=== PATIENT | male | born 1955 | race Caucasian/White ===

== ENCOUNTER 2017-08-27 03:34 | Emergency (ER) | payer BC ==
[2017-08-27 04:29] LABS: #Basophils 0.1 thou/uL (0.0-0.2); #Eosinphils 0.2 thou/uL (0.0-0.7); #Lymphocytes 1.4 thou/uL (1.20-3.40); #Monocytes 0.5 thou/uL (0.11-0.59); #Neutrophils 2.4 thou/uL (1.40-6.50); %Basophils 1.6 % (0.0-1.0); %Eosinophils 4.6 % (0.0-10.0); %Lymphocytes 30.3 % (21.0-51.0); %Monocytes 10.4 % (0.0-10.0); %Neutrophils 53.1 % (42.0-75.0); Hemoglobin 14.2 g/dL (14.0-18.0); Mean Corpuscular HGB CONC 35.2 g/dL (32.0-36.0); Mean Corpuscular Hemoglobin 34.8 pg (27.0-31.0); Mean Corpuscular Volume 98.7 fl (80.0-94.0); Mean Platelet Volume 7.9 fL (7.4-10.4); Platelet Count 182 thou/uL (130-400); RBC Distribution Width 12.4 % (11.5-14.5); Red Blood Cell (RBC) Count 4.08 mill/uL (4.70-6.10); White Blood Cell (WBC) Count 4.5 thou/uL (4.8-10.8)
[2017-08-27 04:35] LABS: ALT (SGPT) 46 U/L (8-55); AST (SGOT) 29 U/L (5-34); Albumin 4.4 g/dL (3.4-4.8); Alkaline Phosphatase 79 U/L (40-150); Anion Gap 14 mmol/L (10-20); BUN (Urea Nitrogen) 24 mg/dL (8.4-25.7); Bilirubin, Total 0.3 mg/dL (0.2-1.2); Calc. Creatinine Clearance 0 mL/min (70-130); Calcium 10.1 mg/dL (7.8-10.44); Carbon Dioxide 21 mmol/L (23-31); Chloride 108 mmol/L (98-107); Estimated GFR-MDRD 76; Globulin 2.8 g/dL (2.4-3.5); Glucose 109 mg/dL (80-115); Potassium 3.7 mmol/L (3.5-5.1); Protein, Total 7.2 g/dL (5.8-8.1); Sodium 139 mmol/L (136-145)
[2017-08-27 04:39] LABS: CKMB 2.4 ng/mL (0-6.6)
--- NOTE | 2017-08-27 08:09 | RAD ---
CHEST ONE VIEW: History: Palpitations. Comparison: None. FINDINGS: Lungs are clear. No pneumothorax or effusion. Cardiac silhouette and mediastinal contours are within normal limits. Moderate degenerative disease of the acromioclavicular joints. IMPRESSION: No acute intrathoracic abnormality. POS: [facility]
--- NOTE | 2017-09-12 20:53 | EKG ---
Test Reason : PALPITATIONS Blood Pressure : / mmHG Vent. Rate : 091 BPM Atrial Rate : 091 BPM P-R Int : 154 ms QRS Dur : 090 ms QT Int : 370 ms P-R-T Axes : 049 -02 015 degrees QTc Int : 455 ms Normal sinus rhythm Minimal voltage criteria for LVH, may be normal variant Nonspecific ST abnormality Abnormal ECG Confirmed by JUDE BYERS, DOLLY ([id number]), editor book ABDI GORE ([id number]) on 09/12/2017 8:52:54 PM Referred By: Confirmed By:DOLLY ROQUE MD
== END 2017-08-27 05:03 | disposition home or self-care (01) ==
LOC: ERS 03:34
DX: R00.2 Palpitations (principal); Z79.899 Other long term (current) drug therapy
CPT/HCPCS: 36415; 71010; 80053; 82553; 84484; 85025; 93005

== ENCOUNTER 2018-07-22 20:11 | Observation (INO) | payer BC ==
[~2018-07-22 20:11] MED LIST: ISOVUE-370 76%-LOCM 1 ML ONE
--- NOTE | 2018-07-22 20:28 | CT ---
NONCONTRAST HEAD CT 07/22/18 HISTORY: Recent ablation. Left sided numbness and weakness x30 minutes. FINDINGS: No parenchymal hemorrhage. No extra-axial hematoma. No midline shift. Basilar cisterns are patent. Br ain volume is age appropriate. Cortical tracy-white matter differentiation is preserved. Ventricles and sulci are patent and symmetric. Adequate aeration of the sinuses and mastoid air cells. Cavernous carotid atherosclerosis. Intact calvarium. IMPRESSION: No acute intracranial process. Results of the study discussed with Dr. Silva, 07/22/18 at 8:20 p.m. Code CR POS: [facility]
[2018-07-22 20:40] LABS: #Eosinphils 0.1 thou/uL (0.0-0.7); #Lymphocytes 1.6 thou/uL (1.20-3.40); #Monocytes 0.6 thou/uL (0.11-0.59); #Neutrophils 3.6 thou/uL (1.40-6.50); %Basophils 0.4 % (0.0-1.0); %Eosinophils 1.3 % (0.0-10.0); %Lymphocytes 27.7 % (21.0-51.0); %Monocytes 9.9 % (0.0-10.0); %Neutrophils 60.7 % (42.0-75.0); Hemoglobin 12.5 g/dL (14.0-18.0); Mean Corpuscular HGB CONC 33.1 g/dL (32.0-36.0); Mean Corpuscular Hemoglobin 33.1 pg (27.0-31.0); Mean Platelet Volume 8.1 fL (7.4-10.4); Platelet Count 166 thou/uL (130-400); RBC Distribution Width 13.4 % (11.5-14.5); Red Blood Cell (RBC) Count 3.78 mill/uL (4.70-6.10); White Blood Cell (WBC) Count 5.9 thou/uL (4.8-10.8)
[2018-07-22 20:46] LABS: INR-International Normal Ratio 1.1; PTT 31.3 SEC (22.9-36.1); Prothrombin Time 14.2 SEC (12.0-14.7)
[2018-07-22 20:55] LABS: ALT (SGPT) 53 U/L (8-55); AST (SGOT) 36 U/L (5-34); Albumin 4.4 g/dL (3.4-4.8); Alkaline Phosphatase 70 U/L (40-150); Anion Gap 14 mmol/L (10-20); BUN (Urea Nitrogen) 21 mg/dL (8.4-25.7); Bilirubin, Total 0.2 mg/dL (0.2-1.2); CK (CPK) 156 U/L (30-200); Calc. Creatinine Clearance 0 mL/min (70-130); Carbon Dioxide 21 mmol/L (23-31); Chloride 110 mmol/L (98-107); Estimated GFR-MDRD 57; Globulin 2.4 g/dL (2.4-3.5); Glucose 96 mg/dL (80-115); Potassium 3.7 mmol/L (3.5-5.1); Protein, Total 6.8 g/dL (5.8-8.1); Sodium 141 mmol/L (136-145)
[2018-07-22 21:02] LABS: CKMB 3.8 ng/mL (0-6.6)
[2018-07-22 21:04] LABS: Bilirubin Negative (Negative); Blood, Urine Negative (Negative); Clarity CLEAR (Clear); Glucose, Urine (Dipstick) Negative (Negative); Leukocyte Negative (Negative); Nitrite Negative (Negative); Protein, Urine (Dipstick) Negative (Neg-Trace); Specific Gravity, Urine 1.007 (1.002-1.036); Urobilinogen 0.2 mg/dL (0.2-1.0)
[2018-07-22 21:06] LABS: Troponin I 0.574 ng/mL (< 0.028)
--- NOTE | 2018-07-22 21:06 | RAD ---
ONE VIEW CHEST: 07/22/18 HISTORY: Chest pain. Left sided numbness x30 minutes. Recent cardiac ablation. COMPARISON: 08/27/17. FINDINGS: Portable upright chest demonstrates a normal cardiac silhouette. Pulmonary vessels and hilum are norm al. Costophrenic angles are clear. Lung volumes are diminished. Interstitial opacities in the lung ba ses likely represent atelectasis. No pneumothorax or osseous abnormalities. IMPRESSION: No acute cardiopulmonary process. POS: [facility]
--- NOTE | 2018-07-22 21:18 | CT ---
CT ANGIOGRAM OF THE HEAD CT ANGIOGRAM OF THE NECK 07/22/18 HISTORY: Level I stroke alert. Left sided numbness x30 minutes. Recent cardiac ablation. COMPARISON: None. TECHNIQUE: CT angiogram of the head and neck are performed in the axial plane. Three dimensional reformatted johanna ges are submitted for interpretation. FINDINGS: POSTCONTRAST HEAD CT: Chronic small vessel ischemic change of white matter is suspected. No evidence of loss of cortical gr ay-white matter differentiation. No hydrocephalus. No pathologic enhancement of the brain parenchyma. There is adequate aeration of the visualized sinuses and mastoid air cells. Bilateral ocular lenses are appropriately located. Both globes are intact. Retrobulbar fat is preserv ed. Symmetric attenuation of the optic nerves and ocular rectus muscles. Limited evaluation of the or al cavity due to dental amalgam artifact. Aerodigestive tract is patent. Symmetric attenuation of the parotid and submandibular glands. Unremarkable thyroid gland. Symmetric attenuation of the sternocle idomastoid muscles. No evidence of lymphadenopathy by size criteria. Upper mediastinum and lung apices are unremarkable. Cervical spine vertebral body height is maintained. No fracture or malalignment. No evidence of high grade central canal stenosis. Varying degrees of significant multilevel neural foraminal narrowing on the basis of degenerative change. Evaluation is limited by technique. CT ANGIOGRAM: The aortic arch is excluded from exam. RIGHT CAROTID: The visualized right carotid artery has appropriate enhancement and luminal diameter. There is minima l atherosclerosis in the carotid bifurcation and mild stenosis due to noncalcified plaque in the prox imal right internal carotid artery. No evidence of significant stenosis based upon NASCET criteria. LEFT CAROTID: The visualized left carotid artery has appropriate enhancement and luminal diameter. There is no sign ificant stenosis based upon NASCET criteria. The visualized cervical vertebral arteries are also patent and essentially codominant. The visualized subclavian arteries are also unremarkable. CT ANGIOGRAM OF THE HEAD: Distal cervical and intracranial internal carotid arteries are essentially symmetric. Minimal atheros clerosis involving both cavernous and paraclinoid segments. ANTERIOR CIRCULATION: There is symmetric enhancement and luminal diameter of the M1 segments and proximal MCA branches. Sli ghtly diminutive left A1 segment is felt to be due to congenital variant. Nevertheless, bilateral pro ximal A2 segments are patent. POSTERIOR CIRCULATION: Both vertebral arteries supply a normal appearing basilar artery. Both P1 segments have appropriate e nhancement and luminal diameter. Limited evaluation of both PICA artery origins. IMPRESSION: 1. No evidence of significant stenosis at the level of the [place]. 2. No significant stenosis of the cervical carotid artery based upon NASCET criteria. Results of the study discussed with Dr. Silva, 07/22/18 at 9:03 p.m. Code CR POS: [facility]
[2018-07-22] MEDS ORDERED: Ondansetron PF 4 MG/2 ML Vial ONE (22:01)
[2018-07-22] MEDS ORDERED: Metoclopramide HCl 10 MG/2 ML VIAL ONE (22:37)
[2018-07-22] MEDS ORDERED: diphenhydrAMINE 50 MG/ML VIAL ONE (22:37)
[2018-07-22] MEDS ORDERED: Sodium Chloride 0.45% 1,000 ML IV SCH (23:45)
[2018-07-22] MEDS ORDERED: Ondansetron PF 4 MG/2 ML Vial IVP PRN ×2 (23:54→23:58)
[2018-07-22] MEDS ORDERED: Ondansetron ODT 4 MG TAB PO PRN (23:54)
--- NOTE | 2018-07-22 23:54 | PDOC.FPRHP ---
- History of Present Illness Chief Complaint: left-sided numbness and perioral facial droop History of Present Illness: Patient is a 63YO gentleman with a PMH significant for atrial fibrillation and flutter s/p ablation x2 and cardioversion x 1 and CAD who underwent cardiac ablation yesterday who presented to the ED after he began to feel left-sided numbness in his perioral region, his left hand and his left foot around 20:30 today. He reports that he was sitting down at dinner and suddenly began to feel some numbness and tingling in his left hand which was followed by L-sided perioral and foot numbness. He attempted to get up from the table and lay down in bed but his then noticed that the left side of his mouth was "flat" so they decided to come to the ED for further evaluation. The patient reports an associated 5/10 bitemporal headache and nausea but denies any weakness, vision changes, chest pain, palpitations, lightheadedness, or syncope. He has never had a stroke before but has had 3 cardiac stents placed. ED Course: The patient was given 324mg of PO ASA as well as IV reglan and benadryl. - Allergies/Adverse Reactions Allergies Allergy/AdvReac Type Severity Reaction Status Date / Time No Known Drug Allergies Allergy Verified 07/23/18 01:13 - Home Medications Medication Instructions Recorded Confirmed Type Aspirin [Aspirin Chewable Tablet] 81 mg PO DAILY 07/23/18 07/23/18 History Dabigatran [Pradaxa] 150 mg PO BID 07/23/18 07/23/18 History Omeprazole 40 mg PO HS 07/23/18 07/23/18 History Propafenone HCl [Rythmol SR] 425 mg PO BID 07/23/18 07/23/18 History Rosuvastatin [Crestor] 40 mg PO HS 07/23/18 07/23/18 History Temazepam 30 mg PO HS 07/23/18 07/23/18 History clonazePAM [Clonazepam] 0.5 mg PO HS 07/23/18 07/23/18 History - History PMHx: CAD s/p stent placement x3, DEYVI, GERD, HLD, atrial fibrillation/flutter s/ p ablation x2 and cardioversion x1 PSHx: CABG w/ 3 stents placed, cardiac ablation x2 (07/21/18 & 05/05/18), cardioversion x1 FHx: [place]- brother CVA - grandfather Social: Lives at home with his . Denies any tobacco or illicit drug use. Endorses drinking a glass of red wine every evening. - Review of Systems General: denies: fever/chills, fatigue Eyes: denies: vision changes ENT: reports: other (no sore throat). denies: nasal congestion Respiratory: denies: cough, congestion, shortness of breath Cardiovascular: denies: chest pain, palpitation Gastrointestinal: reports: nausea. denies: vomiting, diarrhea, constipation, abdominal pain Genitourinary: denies: dysuria (no hematuria) Skin: denies: rashes, itching Musculoskeletal: denies: pain, arthritis/arthralgias Neurological: reports: numbness, other (+ headache). denies: syncope, weakness Psychological: denies: anxiety, depression - Vital signs BP: 138/83 HR: 79 RR: 16 Tmax: 98.6F Pox: 95% on RA Wt: 116.375 kg - Physical Exam Constitutional: NAD, awake, alert and oriented, well developed HEENT: normocephalic and atraumatic, PERRLA, EOMI, grossly normal vision, grossly normal hearing, MMM, oropharynx clear Neck: supple, FROM, trachea midline Heart: RRR, normal S1/S2, pulses present, no edema Lungs: CTAB, no respiratory distress, good air movement, no rales/rhonchi, no wheezing Abdomen: soft, non-tender, bowel sounds present Musculoskeletal: normal structure, ROM grossly normal Neurological: no focal deficit -Neurological: Decreased sensation in V1 & V3 on the left. Otherwise, all other electrician powerhouse intact. No dysarhtria or facial droop noted. Also decreased pinprick sensation in left foot. Proprioception intact. 5/5 strength throughout. Skin: no rash/lesions, good turgor, no jaundice Heme/Lymphatic: no unusual bruising or bleeding Psychiatric: normal mood and affect, good judgment and insight, intact recent and remote memory FMR H&P: Results - Labs Result Diagrams: 07/22/18 20:27 07/22/18 20:27 Lab results: WBC 5.9 thou/uL (4.8-10.8) 07/22/18 20:27 Hgb 12.5 g/dL (14.0-18.0) L 07/22/18 20: Hct 37.8 % (42.0-52.0) L 07/22/18 20: MCV 100.0 fL (78.0-98.0) H 07/22/18 20: Plt Count 166 thou/uL (130-400) 07/22/18 20: Neutrophils % 60.7 % (42.0-75.0) 07/22/18 20: Sodium 141 mmol/L (136-145) 07/22/18 20: Potassium 3.7 mmol/L (3.5-5.1) 07/22/18 20: Chloride 110 mmol/L (98-107) H 07/22/18: Carbon Dioxide 21 mmol/L (23-31) L 07/22/18 20: BUN 21 mg/dL (8.4-25.7) 07/22/18 20: Creatinine 1.28 mg/dL (0.6-1.3) 07/22/18 20: Glucose 96 mg/dL (80-115) 07/22/18 20: Calcium 9.0 mg/dL (7.8-10.44) 07/22/18: Total Bilirubin 0.2 mg/dL (0.2-1.2) 07/22/18 20: AST 36 U/L (5-34) H 07/22/18 20: ALT 53 U/L (8-55) 07/22/18: Alkaline Phosphatase 70 U/L (40-150) 07/22/18 20: Creatine Kinase 156 U/L (30-200) 07/22/18 20: CK-MB (CK-2) 3.8 ng/mL (0-6.6) 07/22/18 20: Serum Total Protein 6.8 g/dL (5.8-8.1) 07/22/18 20: Albumin 4.4 g/dL (3.4-4.8) 07/22/18 20: Urine Ketones Negative mg/dL (Negative) 07/22/18 20: Urine Blood Negative (Negative) 07/22/18 20: Urine Nitrite Negative (Negative) 07/22/18 20:51 Ur Leukocyte Esterase Negative (Negative) 07/22/18 20:51 - Radiology Interpretation CT scan - head Status: report reviewed by me (No acute IC process.) Other Status: report reviewed by me Additional comment: CTA head and neck - no significant stenosis Chest x-ray Status: report reviewed by me (No acute cardiopulmonary process) FMR H&P: A/P - Problem List (1) TIA (transient ischemic attack) Current Visit: Yes Status: Suspected Code(s): G45.9 - TRANSIENT CEREBRAL ISCHEMIC ATTACK, UNSPECIFIED (2) GERD (gastroesophageal reflux disease) Current Visit: Yes Status: Chronic Code(s): K21.9 - GASTRO-ESOPHAGEAL REFLUX DISEASE WITHOUT ESOPHAGITIS (3) DEYVI (obstructive sleep apnea) Current Visit: Yes Status: Chronic Code(s): G47.33 - OBSTRUCTIVE SLEEP APNEA (ADULT) (PEDIATRIC) (4) HLD (hyperlipidemia) Current Visit: Yes Status: Chronic Code(s): E78.5 - HYPERLIPIDEMIA, UNSPECIFIED (5) History of atrial fibrillation Current Visit: Yes Status: Chronic Code(s): Z86.79 - PERSONAL HISTORY OF OTHER DISEASES OF THE CIRCULATORY SYSTEM (6) Status post ablation of atrial flutter Current Visit: Yes Status: Acute Code(s): Z98.890 - OTHER SPECIFIED POSTPROCEDURAL STATES; Z86.79 - PERSONAL HISTORY OF OTHER DISEASES OF THE CIRCULATORY SYSTEM - Plan 63 YO gentleman with a PMH significant for HLD and atrial fibrillation/flutter s /p ablation yesterday who presented to the ED with a chief complaint of sudden onset L-sided numbness and facial droop that began around 20:30 this evening. Suspected TIA: - Patient has some residual numbness in L face, hand and foot w/ decreased sensation to touch in V1 & V3 and left foot on exam but facial droop has resolved. Per patient numbness has improved slightly since onset. - Was given 324mg ASA in the ED. CT of head and CTA of head and neck were negative for ICH or any significant stenosis. Likely a TIA rather than a CVA. However, patient is certainly at risk of having an ischemic CVA given h/o a fib/ flutter w/ ablation done yesterday. - Will admit to stroke OBS unit for MRI in the AM. - NPO pending clearance of bedside swallow study. - PT and OT consulted. Will hold off consulting neurology for now. - Will continue on 81 mg ASA and home statin and pradaxa. - FLP ordered with AM labs. h/o atrial fibrillation and flutter s/p ablation: - Patient has been in NSR since admission. - Will continue to monitor closely and resume home meds. HLD: - Will resume home meds. GERD: - Will resume home meds. DEYVI: - Aware, will resume CPAP HS. FMR H&P: Upper Level - Pertinent history 63 yo M with PMHx of a fib and flutter s/p ablation, CAD who presents with cc of L sided numbness and L facial droop. He reports the symptoms started tonight around 20:30. He also endorses a headache that is most prominent on both temples that he rates as a 5/10. He states he "sometimes" gets headaches and this is typical for that type of headache. He denies light sensitivity, n/v. - Pertinent findings Gen: awake, alert, oriented x3 HEENT: atraumtic, normocephalic, no facial droop appreciated CV: RRR, no murmur RESP: CTAB Neuro: decreased sensation in V1/V3 and perioral numbness on L side - Plan Date/Time: 07/22/18 2354 63 yo M with PMHx of a fib/flutter presents with L sided deficits suspicious for TIA vs acute stroke 1. TIA r/o stroke - CT negative in ED - Symptoms improving, L sided numbness persistent - Plan for MRI in the morning - Neuro checks, admit to stroke, monitor on tele 2. A fib/flutter s/p recent ablation - Monitor on telemetry - Continue home meds 3. Headache - Suspect tension headache, pt has had h/a like this before - Reglan and benadryl started in ED - Will monitor for improvement - Consider repeat CT if acute worsening I, Sarah Carolina MD, PGY-3, have evaluated this patient and agree with findings/ plan as outlined by partner marketing intern resident. Pertinent changes/additions are listed here. Attending Addendum - Attending Addendum Date/Time: 07/23/18 1035 I personally evaluated the patient and discussed the management with Dr. Calles/ Ge. I agree with the History, Examination, Assessment and Plan documented above with any addition or exceptions noted below. Patient here with concern for CVA versus TIA. Has never had similar symptoms before and reports some L sided visual defects that are new. He underwent cardiac ablation 2 days ago and is on Pradaxa and ASA outside of hospital. CTA negative. Awaiting MRI and Neuro consult today. Continue current mgmt. He is also having some "flutters" in his chest that are associated with PACs on telemetry. His ablation was for Aflutter and will continue to monitor as he is not currently in Aflutter. Await neuro recs for further mgmt and dispo.
[2018-07-22] MEDS ORDERED: Ondansetron ODT 4 MG TAB SL PRN (23:58)
[2018-07-23 00:39] LABS: Critical Call Chem Troponin I RESULT DECREASING; Troponin I 0.553 ng/mL (< 0.028)
[2018-07-23 01:08] VITALS: BMI 34.7
[2018-07-23 03:27] LABS: Critical Call Chem Troponin I RESULT DECREASING; Troponin I 0.505 ng/mL (< 0.028)
[2018-07-23 03:54] LABS: Cardiac Risk 3.3 (Less than 4.5)
[2018-07-23] MEDS: Acetaminophen 325 MG TAB PO PRN ×2 (03:56→08:03)
--- NOTE | 2018-07-23 08:04 | PDOC.FM ---
- Subjective Subjective: Patient seen resting comfortably this morning. States that L sided numbness is still present, however has improved. No new symptoms. No acute events over night. - Objective Vital Signs & Weight: Vital Signs (12 hours) Temp Pulse Resp BP BP Pulse Ox 07/23/18 03:18 97.7 F 67 16 119/65 97 07/22/18 23:54 95 07/22/18 23:36 97.9 F 77 16 113/61 95 Weight Weight 116.375 kg Result Diagrams: 07/22/18 20:27 07/22/18 20:27 <Deni Robertson - Last Filed: 07/23/18 08:02> - Objective Vital Signs & Weight: Vital Signs (12 hours) Temp Pulse Resp BP BP Pulse Ox 07/23/18 07:30 98.7 F 65 20 109/59 L 94 L 07/23/18 03:18 97.7 F 67 16 119/65 97 07/22/18 23:54 95 07/22/18 23:36 97.9 F 77 16 113/61 95 Weight Weight 116.375 kg I&O: 07/22/18 07/23/18 07/24/18 06:59 06:59 06:59 Intake Total 480 300 Balance 480 300 Result Diagrams: 07/22/18 20:27 07/22/18 20:27 <Azar Thorne - Last Filed: 07/23/18 10:49> Phys Exam - Physical Examination Constitutional: NAD HEENT: PERRLA, moist MMs, sclera anicteric Neck: no nodes Respiratory: clear to auscultation bilateral Cardiovascular: no significant murmur Gastrointestinal: no distention Musculoskeletal: pulses present L sided paresthesia on UE, LE, and face. Normal strength. CN otherwise intact Psychiatric: A&O x 3 Skin: no rash <Deni Robertson - Last Filed: 07/23/18 08:02> Dx/Plan (1) Status post ablation of atrial flutter Code(s): Z98.890 - OTHER SPECIFIED POSTPROCEDURAL STATES; Z86.79 - PERSONAL HISTORY OF OTHER DISEASES OF THE CIRCULATORY SYSTEM Status: Acute (2) GERD (gastroesophageal reflux disease) Code(s): K21.9 - GASTRO-ESOPHAGEAL REFLUX DISEASE WITHOUT ESOPHAGITIS Status: Chronic (3) HLD (hyperlipidemia) Code(s): E78.5 - HYPERLIPIDEMIA, UNSPECIFIED Status: Chronic (4) History of atrial fibrillation Code(s): Z86.79 - PERSONAL HISTORY OF OTHER DISEASES OF THE CIRCULATORY SYSTEM Status: Chronic (5) DEYVI (obstructive sleep apnea) Code(s): G47.33 - OBSTRUCTIVE SLEEP APNEA (ADULT) (PEDIATRIC) Status: Chronic (6) TIA (transient ischemic attack) Code(s): G45.9 - TRANSIENT CEREBRAL ISCHEMIC ATTACK, UNSPECIFIED Status: Suspected - Plan Plan: TIA vs CVA - Patient has persistent paresthesia on L side, however improving. - MRI this am, consult neuro pending results - Continue ASA and pradaxa. Patient was supposed to be on Plavix at home due to cardiac stent, however he has not bee taking it. Will restart here. h/o atrial fibrillation and flutter s/p ablation: - Continue to monitor. Currently NSR Elevated TSH - Free T4 is normal, will consider starting sythroid today HLD: - Will resume home meds. GERD: - Will resume home meds. DEYVI: - will resume CPAP HS. Dispo: patient stable and doing well. Continue TIA/CVA work up. Likely dc this afternoon <Deni Robertson - Last Filed: 07/23/18 08:02> (1) TIA (transient ischemic attack) Code(s): G45.9 - TRANSIENT CEREBRAL ISCHEMIC ATTACK, UNSPECIFIED Status: Suspected (2) GERD (gastroesophageal reflux disease) Code(s): K21.9 - GASTRO-ESOPHAGEAL REFLUX DISEASE WITHOUT ESOPHAGITIS Status: Chronic (3) DEYVI (obstructive sleep apnea) Code(s): G47.33 - OBSTRUCTIVE SLEEP APNEA (ADULT) (PEDIATRIC) Status: Chronic (4) HLD (hyperlipidemia) Code(s): E78.5 - HYPERLIPIDEMIA, UNSPECIFIED Status: Chronic (5) History of atrial fibrillation Code(s): Z86.79 - PERSONAL HISTORY OF OTHER DISEASES OF THE CIRCULATORY SYSTEM Status: Chronic (6) Status post ablation of atrial flutter Code(s): Z98.890 - OTHER SPECIFIED POSTPROCEDURAL STATES; Z86.79 - PERSONAL HISTORY OF OTHER DISEASES OF THE CIRCULATORY SYSTEM Status: Acute <Azar Thorne - Last Filed: 07/23/18 10:49> Attending Addendum - Attending Addendum Date/Time: 07/23/18 1048 I personally evaluated the patient and discussed the management with Dr. Robertson. I agree with the History, Examination, Assessment and Plan documented above with any addition or exceptions noted below. MRI for TIA/CVA r/o. PAC on telemetry but no aberrant rhythms. Dispo per results and Neuro consult. <Azar Thorne R - Last Filed: 07/23/18 10:49>
[2018-07-23] MEDS ORDERED: PROPAFENONE HCL 425 MG PO SCH (09:00)
[2018-07-23] MEDS ORDERED: Aspirin 81 mg Enteric Coated Tablet PO SCH (09:00)
[2018-07-23] MEDS ORDERED: Aspirin 325 MG TAB PO SCH (09:00)
[2018-07-23] MEDS ORDERED: Dabigatran 150 mg Capsule PO SCH (09:00)
[2018-07-23] MEDS ORDERED: Enoxaparin Sodium 40 MG/0.4 ML SYRINGE SC SCH (09:00)
--- NOTE | 2018-07-23 14:32 | MRI ---
MRI BRAIN WITHOUT CONTRAST: Multiplanar, multisequential imaging of brain obtained. INDICATION: Left side numbness. COMPARISON: Correlation with CT brain 07/22/2018. FINDINGS: Ventricles are normal size and position. Review of the diffusion weighted images shows restricted di ffusion in the medial right temporal lobe consistent with cortical infarct at this location. This wo uld involve the hippocampus. There are 2 or 3 tiny foci of restricted diffusion in the right cerebellum. There are scattered tiny foci of restricted diffusion seen in both occipital lobes slightly more nume mercedes on the right. There are scattered tiny foci in both frontal lobes more prominent superiorly with a few scattered pa rietal lobe foci as well. No evidence of acute hemorrhage. The intracranial internal carotid arteries, proximal cerebral arteries, and basilar artery show flow voids. Dural venous sinuses appear patent. Paranasal sinuses and mastoids clear. IMPRESSION: 1. Acute cortical infarct involving the medial right temporal lobe. 2. Numerous tiny foci of restricted diffusion seen in the right cerebellum and in both cerebral ki spheres as described above. Findings would indicate embolic phenomenon. POS: [facility]
[2018-07-23 16:02] VITALS: BP 140/76; TEMP 98.4
--- NOTE | 2018-07-23 18:32 | CON ---
DATE OF CONSULTATION: 07/23/2018 CONSULTING PHYSICIAN: Family Medicine. IMPRESSION: Probable cardioembolic stroke secondary to cardioversion from atrial fibrillation. PLAN: 1. Continue Pradaxa and aspirin for now. 2. Consider discontinuing Pradaxa in 2 months if he remains in a normal sinus rhythm. HISTORY: Mr. Falcon is a 63-year-old gentleman who has a history of atrial fibrillation, has been fol lowed by Cardiology and has recently had a second cardioversion. Following the event, he developed a cute numbness involving the left face, hand and foot. His symptoms are steadily improving, it was no t associated with headache, nausea, vomiting, vertigo, weakness or difficulty walking. He feels like his peripheral vision on the left is a bit distorted. He had an MRI of the brain which showed a rig ht cortical parietal area of infarct. His CT angiogram did not show any carotid disease or any signi ficant problems and [place]. He denies any past history of stroke symptoms. PAST MEDICAL HISTORY: As listed above including GERD. FAMILY HISTORY: Noncontributory. MEDICATION LIST: Reviewed. ALLERGIES: None. SOCIAL HISTORY: No tobacco or alcohol abuse. REVIEW OF SYSTEMS: Otherwise, unremarkable. PHYSICAL EXAMINATION: GENERAL: He is a well-nourished middle-aged man in no distress. VITAL SIGNS: Blood pressure 113/61, pulse 61, respirations 14, temperature 98.6. HEENT: Pupils are equal and reactive. Conjunctivae clear. Oropharynx clear. NECK: Supple. EXTREMITIES: No cyanosis. NEUROLOGIC: He is alert and appropriate. His speech is fluent and clear. Cranial nerves are intact other than the subjective decreased sensation of the left cheek. Motor exam shows good antigravity strength bilaterally. He can walk independently. Sensory testing showed some subjective numbness in the last two digits of the left hand and across the foot. Cerebellar testing was unremarkable. LABORATORY STUDIES: Include CBC, coags and TSH were only remarkable for an elevated TSH. MRI images were reviewed. SUMMARY: A 63-year-old gentleman with an area of infarct, it is fairly typical of a cardioembolic lo cation. Agree with your current management and I would be happy to follow up with him as an outpatie nt.
[2018-07-23] MEDS ORDERED: clonazePAM 0.5 MG TAB PO SCH (21:00)
[2018-07-23] MEDS ORDERED: Atorvastatin Calcium 40 MG TAB PO SCH (21:00)
[2018-07-23] MEDS ORDERED: Apixaban 5 MG TAB PO SCH (21:00)
[2018-07-23] MEDS ORDERED: Rosuvastatin 20 MG TAB PO SCH ×2 (21:00)
[2018-07-23] MEDS ORDERED: Temazepam 15 MG CAP PO SCH (21:00)
[2018-07-24] MEDS ORDERED: Aspirin 325 mg Enteric Coated Tablet PO SCH (09:00)
--- NOTE | 2018-07-26 07:25 | DIS-2 ---
DATE OF ADMISSION: DATE OF DISCHARGE: RESIDENT: Deni Robertson DO ADMITTING ATTENDING: Azar Thorne MD DISCHARGE ATTENDING: Azar Throne MD CONSULTATION: Neurology, Dr. Almonte. PROCEDURES: CT angio brain on 07/22/2018 with finding of no acute intracranial process. CT angio [place] on 07/22/2018 with finding of no evidence of significant stenosis of the [place], no significant stenosis of cervical carotid artery based upon NASCET criteria. Chest x-ray on 07/22/2018 with finding of no acute cardiopulmonary process. 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 ADMITTING DIAGNOSES: Transient ischemic attack versus cerebrovascular accident ; gastroesophageal reflux disease; obstructive sleep apnea; hyperlipidemia; history of atrial flutter, status post ablation on 07/21/2018. DISCHARGE DIAGNOSES: Right hemispheric cerebrovascular accident; obstructive sleep apnea; hyperlipidemia; gastroesophageal reflux disease; history of atrial flutter and atrial fibrillation, status post ablation. DISCHARGE MEDICATIONS: Crestor 40 mg p.o. at bedtime, Rythmol 425 mg p.o. b.i.d., omeprazole 40 mg p.o. at bedtime, clonazepam 0.5 mg p.o. at bedtime, temazepam 30 mg p.o. at bedtime, Eliquis 5 mg p.o. b.i.d., aspirin 325 mg p.o. daily. DISCONTINUED MEDICATIONS: Pradaxa 150 mg p.o. b.i.d. and aspirin 81 mg p.o. daily. BRIEF SUMMARY: This is a 63-year-old male who on the afternoon of 07/22/2018 had a witnessed event by his where he had left facial droop. Additionally , the patient had left-sided hemiparesis involving his face, upper extremity, and lower extremity. The patient was admitted for concern of transient ischemic attack versus cerebrovascular accident. Initial imaging was negative; however, subsequent MRI found a right-sided CVA as described above. The patient was monitored for the duration of his admission and during that time he was in normal sinus rhythm with some periodic PACs. After discussion with Neurology, it was determined that the patient was on appropriate medical management when switched to Eliquis and going to 325 of aspirin and that there should be no other changes made to the patient's management. The patient was seen by Speech Therapy, Physical Therapy, and Occupational Therapy and cleared. Prior to discharge, the patient had persistent paresthesias; however, they had improved from the time of admission. The patient was advised to discontinue Pradaxa and start Eliquis this evening. He is also advised to follow up with both his PCP and his fax machine operator within a week. All questions were answered prior to leaving. He was given return instructions should symptoms were to return/worsen or new symptoms begin DISCHARGE INSTRUCTIONS: 1. Location: Home. 2. Activity: Ad martell. 3. Diet: Heart healthy. 4. Follow up in 1 week with PCP, Dr. Hussein Owen in [place], [place]; and with fax machine operator. JOSE
--- NOTE | 2018-07-31 16:05 | EKG ---
Test Reason : Blood Pressure : / mmHG Vent. Rate : 070 BPM Atrial Rate : 070 BPM P-R Int : 160 ms QRS Dur : 102 ms QT Int : 398 ms P-R-T Axes : 033 016 -11 degrees QTc Int : 429 ms Normal sinus rhythm Normal ECG Confirmed by JEMAL CARDENAS ([id number]), slot editor ABDI GORE ([id number]) on 07/31/2018 4:05:21 PM Referred By: Confirmed By:JEMAL CARDENAS
== END 2018-07-23 17:54 | disposition home or self-care (01) ==
LOC: ERS 20:11 → INTOOBSV 22:37 → 2SE 22:37
PROVIDERS: ADMIT Student in an Organized Health Care Education/Training Program; ATTEND Student in an Organized Health Care Education/Training Program
DX: I63.9 Cerebral infarction, unspecified (principal); G45.9 Transient cerebral ischemic attack, unspecified; I48.91 Unspecified atrial fibrillation; I48.92 Unspecified atrial flutter; G47.33 Obstructive sleep apnea (adult) (pediatric); E78.5 Hyperlipidemia, unspecified; I25.10 Atherosclerotic heart disease of native coronary artery without angina pectoris; K21.9 Gastro-esophageal reflux disease without esophagitis; Z79.82 Long term (current) use of aspirin; Z79.02 Long term (current) use of antithrombotics/antiplatelets; Z79.899 Other long term (current) drug therapy; Z95.5 Presence of coronary angioplasty implant and graft; Z98.890 Other specified postprocedural states
CPT/HCPCS: 36415; 36416; 70450; 70496; 70498; 70551; 71045; 80053; 80061; 81003; 82550; 82553; 83735; 84439; 84443; 84484; 85025; 85610; 85730; 93005; 96365; 96375; G0378; J1200; J2405; J2765; Q0162